=== PATIENT | male | born 1990 | race Caucasian/White ===

== ENCOUNTER 2017-05-13 07:31 | Emergency (ER) | payer OTHER ==
[~2017-05-13] VITALS: Ht 177.8 cm; Wt 70.0 kg
[2017-05-13 07:45] VITALS: BP 139/78; PULSE 68; RESP 16; RESP 18; TEMP 98.6; O2SAT 98
--- NOTE | 2017-05-13 08:27 | PD ---
HPI Chief Complaint: Psychiatric Symptoms Time Seen by Provider: 07:51 Travel History International Travel<30 days: No Contact w/Intl Traveler<30days: No Traveled to known affect area: No History of Present Illness HPI 26-year-old male brought in under Simpson's act. According to law enforcement report the patient "was located in the summer and running around naked at 6 AM, one side but was 47. He was not making sense, did not know his name or how he came to be. The patient admitted to using narcotics including K2." On my examination the patient admits to taking acid and drinking alcohol. He says he has visually hallucinating. He denies suicidal or homicidal ideation. He doesn 't recall the events to lead up to being brought to the hospital. Onset prior to arrival. Duration unknown. No known relieving or aggravating factors. Symptoms are moderate to severe in severity. Patient has no emergent medical complaints. He denies chest pain, shortness of breath, abdominal pain, vomiting , headache. Denies significant past medical history. Denies current medications. Denies allergies. Has no other medical complaints. No other modifying factors or associated signs and symptoms. PFSH Past Medical History Medical History: Unable to Obtain Tetanus Vaccination: Unknown Influenza Vaccination: No ?: Unknown Past Surgical History Surgical History: Unable to Obtain Social History Alcohol Use: No (UNKNOWN) Tobacco Use: No Substance Use: Yes (NARCOTICS AND K2 PER POLICE REPORT ) Allergies-Medications (Allergen,Severity, Reaction): Coded Allergies: No Known Allergies (Unverified , 05/13/17) Reported Meds & Prescriptions Reported Meds & Active Scripts Active No Active Prescriptions or Reported Medications Review of Systems Except as stated in HPI: all other systems reviewed are Neg Physical Exam Narrative GENERAL: Well-nourished, well-developed male patient, in no acute distress SKIN: Warm and dry. HEAD: Atraumatic. Normocephalic. PERRLA at 5 mm with brisk reaction; pupils dilated. EYES: Pupils equal and round. ENT: Mucosa pink and moist. NECK: Supple. Trachea midline. CARDIOVASCULAR: Regular rate and rhythm. No murmur appreciated. RESPIRATORY: No accessory muscle use. Clear to auscultation. Breath sounds equal bilaterally. GASTROINTESTINAL: Abdomen soft, non-tender, nondistended. Hepatic and splenic margins not palpable. Bowel sounds are active 4 quadrants. MUSCULOSKELETAL: No obvious deformities. No clubbing. No cyanosis. No edema. NEUROLOGICAL: Awake and alert. No obvious cranial nerve deficits. Motor grossly within normal limits. Normal speech. Moves all extremities. 5/5 strength to all extremities. PSYCHIATRIC: No delusional thought processes. No hallucinations. Data Data Last Documented VS Vital Signs Date Time Temp Pulse Resp B/P (MAP) Pulse Ox O2 Delivery O2 Flow Rate FiO2 05/13/17 07:45 98.6 68 18 139/78 (98) 98 Room Air Orders Orders Ct Brain W/O Iv Contrast(Rout) (05/13/17 ) Drug Screen, Random Urine (05/13/17 08:11) Alcohol (Ethanol) (05/13/17 08:11) Labs Laboratory Tests Test 05/13/17 07:50 05/13/17 08:00 Ethyl Alcohol Level 29 MG/DL Urine Opiates Screen NEG Urine Barbiturates Screen NEG Urine Amphetamines Screen NEG Urine Benzodiazepines Screen NEG Urine Cocaine Screen POS Urine Cannabinoids Screen POS MDM Medical Decision Making Medical Screen Exam Complete: Yes Emergency Medical Condition: Yes Medical Record Reviewed: Yes Differential Diagnosis Polysubstance abuse, EtOH intoxication, narcotic abuse, medical clearance Narrative Course 26-year-old male presents under act. He admits to taking acid. According to law enforcement report he admitted to narcotics and K2. The patient appears to be hallucinating. He has no emergent medical complaints. CT head, EtOH and drug screen ordered. 09: CT head unremarkable. Positive for cocaine and cannabinoids. EtOH 29. Patient medically cleared. Patient will be given time to sleep and will be discharged at a later time when clinically sober. Diagnosis Primary Impression: Polysubstance abuse Referrals: [facility] Primary Care Physician Patient Instructions: 2 Gram Sodium Diet (DC), General Instructions, Polysubstance Abuse (ED) Additional Instructions: Contract safety to your self and others Stop using drugs Follow-up with psychiatry Follow-up with primary care provider Follow-up with Omar Morris/SHARAN Return to the emergency department immediately with worsening of symptoms Med/Other Pt SpecificInfo: No Change to Meds, No Meds Exist/No RX given Scripts No Active Prescriptions or Reported Meds Disposition: 01 DISCHARGE HOME Condition: Stable Erna Dietz May 13, 2017 08:27
--- NOTE | 2017-05-13 08:59 | RADRPT ---
EXAM DATE/TIME: 05/13/2017 08:45 [facility] COMPARISON: No previous studies available for comparison. INDICATIONS : [place], altered mental status RADIATION DOSE: 37.56 CTDIvol (mGy) MEDICAL HISTORY : Suspected drug abuse K2 SURGICAL HISTORY : None. ENCOUNTER: Initial ACUITY: 1 day PAIN SCALE: 0/10 LOCATION: cranial TECHNIQUE: Multiple contiguous axial images were obtained of the head. Using automated exposure control and adj ustment of the mA and/or kV according to patient size, radiation dose was kept as low as reasonably a chievable to obtain optimal diagnostic quality images. DICOM format image data is available electro nically for review and comparison. FINDINGS: CEREBRUM: The ventricles are normal for age. No evidence of midline shift, mass lesion, hemorrhage or acute in farction. No extra-axial fluid collections are seen. POSTERIOR FOSSA: The cerebellum and brainstem are intact. The 4th ventricle is midline. The cerebellopontine angle i s unremarkable. EXTRACRANIAL: The visualized portion of the orbits is intact. SKULL: The calvaria is intact. No evidence of skull fracture. CONCLUSION: 1. No acute intracranial abnormality. Prieto Umaña MD on May 13, 2017 at 8:55 Board Certified Radiologist. This report was verified electronically.
== END 2017-05-13 11:35 | disposition home or self-care (01) ==
LOC: NEPD 07:31
DX: F19.10 Other psychoactive substance abuse, uncomplicated (principal)
CPT/HCPCS: 70450; 80307